=== PATIENT | female | born 1965 | race Caucasian/White ===

== ENCOUNTER 2018-05-27 02:40 | Emergency (ER) | payer SELFPAY ==
[2018-05-27 02:41] VITALS: PULSE 70; RESP 16; TEMP 36.8; O2SAT 97; BMI 28.8
[2018-05-27 02:48] VITALS: BP 124/94; PULSE 62; RESP 16; O2SAT 97
--- NOTE | 2018-05-27 03:23 | EKG12_ITS ---
Test Reason : CP Blood Pressure : / mmHG Vent. Rate : 062 BPM Atrial Rate : 062 BPM P-R Int : 134 ms QRS Dur : 108 ms QT Int : 406 ms P-R-T Axes : 063 056 046 degrees QTc Int : 412 ms Normal sinus rhythm Incomplete right bundle branch block Borderline ECG Confirmed by ROBERT SIMS, SHANON ([id number]), development editor SHARIFA JOHNSON ([id number] on 05/29/2018 2:36:52 PM Referred By: NEIL Confirmed By:SHANON JONES MD
--- NOTE | 2018-05-27 03:24 | ED.VIS.GEN ---
History of Present Illness Chief Complaint: Chest Pain Informant: Patient Onset: Days - 2-3 Context: Sudden Onset Timing: Intermittent, Lasts - 5-10 min Quality: sharp nonpleuritic Location: left side of lower chest, tonight right side Current Severity: gone Maximum Severity: Moderate Worsened by: nothing Relieved by: nothing Associated Symptoms: Throat/right jaw discomfort, nausea en route to hospital, lightheaded Narrative: Tonight patient was awoke by discomfort on the right side although it had been on the left the last couple of days off and on. No dyspnea or palpitations but she did feel little faint. Was clammy but not diaphoretic at one point. No history of heart disease in her or first-degree relatives, she is a non-smoker and is healthy. No history of having a stress test. No recent illnesses or travel. No leg pain or swelling. No pleuritic discomfort. No near syncope. Past Medical History - Allergies and Home Meds Allergies/Adverse Reactions: Allergies amoxicillin Adverse Reaction (Verified 05/27/18 02:45) Rash Primary Care Physician: Yang Laguerre [Primary Care Provider] - 3-5 Days Past Medical History: None Lives: Spouse/ Significant Other Smoking Status: Never smoker Review of Systems General: Denies: Chills, Fever, Sweats Eyes: Denies: Visual changes - bilaterally, Diplopia ENT: Denies: Bilateral ear pain, Rhinorrhea, Sore throat Cardiovascular: Reports: Chest pain. Denies: Palpitations, Heart racing Respiratory: Denies: Dyspnea, Cough, Dyspnea on exertion, Orthopnea Gastrointestinal: Reports: Nausea - Resolved. Denies: Abdominal pain, Vomiting, Diarrhea, Melena, Hematochezia Genitourinary: Denies: Dysuria, Hematuria, Frequency Musculoskeletal: Denies: Back pain, Swelling, Extremity Pain Skin: Denies: Rash, Wounds Neurological: Denies: Headache, Weakness, Numbness Psych: Denies: Depression, Anxiety Endocrine: Denies: Polyuria, Polydipsia Hematologic: Denies: Easy bruising, Easy bleeding Allergy: Denies: Swelling of the mouth, Swelling of the tongue Physical Exam Vital Signs/Narrative: Vital Signs Temp Pulse Resp BP Pulse Ox 05/27/18 02:48 62 16 124/94 H 97 05/27/18 02:41 98.2 F 70 16 97 Inital Vital Signs reviewed: Yes General: Well nourished, Well developed, - - Well-appearing, conversational, NAD Head: Normocephalic, Atraumatic Eyes: Perrl, EOMI ENT: Moist mucous membranes, No rhinorrhea Neck: Supple, Nontender, No lymphadenopathy, No JVD Cardiovascular: Regular rate, Regular rhythm, No murmurs, Normal S1, Normal S2, Murmur - Soft systolic ejection murmur. Negative for: Tachycardia Respiratory: No distress, CTA bilaterally, Chest nontender Abdomen: Soft, Nontender, Nondistended, Normal bowel sounds Back: Nontender, Normal Inspection Extremities: Nontender - No calf tenderness. No palpable cords., No edema Skin: Normal color, No rash Neurological: Alert, Oriented x3, Cranial nerves II-XII grossly intact, Normal Strength, Normal Sensation Psychological: Normal affect Diagnostic/Tx/Re-eval Impressions Chest X-Ray 05/27/18 03:40 IMPRESSION: No radiographic evidence of acute cardiopulmonary disease. Electronically Signed: Jaclyn Pelletier MD at 4:12 EST , Service support , 05/27/18 03:40 Chest PA and Lateral [RAD] Stat Laboratory Results 05/27/18 05/27/18 03:40 03:40 WBC 7.5 RBC 4.36 Hgb 13.8 Hct 40.4 MCV 92.7 MCH 31.7 MCHC 34.2 RDW 12.3 RDW Differential 42.2 Plt Count 216 MPV 8.8 Immature Gran % (Auto) 0.100 Neut % (Auto) 68.5 Lymph % (Auto) 20.8 [place] % (Auto) 7.1 Eos % (Auto) 2.8 Baso % (Auto) 0.7 Absolute Neuts (auto) 5.1 Absolute Lymphs (auto) 1.55 Total Counted Not Reportable Sodium 142 Potassium 4.0 Chloride 105 Carbon Dioxide 29.0 Anion Gap 8 BUN 17 Creatinine 0.92 Estim Creat Clear Calc 61.77 Est GFR (MDRD) Af Amer 82 Est GFR (MDRD) Non-Af 68 BUN/Creatinine Ratio 18.5 Glucose 91 Calcium 10.4 H Troponin I < 0.015 - Rhythm Strip Rhythm Strip: Sinus Rhythm Rate: 60 Ectopy: None - EKG Initial EKG Interpretation: Sinus Rhythm, No Acute Injury Pattern, - - RSR' with narrow complex and normal axis. No old available. Normal EKG. - Medical Decision Making Patient's workup is essentially negative. On reevaluation she is asymptomatic. Her AUGUSTO risk score is 0 and her heart score is 1, only for her age. We discussed possible stress testing as an inpatient versus follow-up as an outpatient, my suspicion for acute coronary syndrome here is relatively low. She declines an offer for admission and prefers to follow-up with her doctor which I think is very reasonable. We discussed reasons to return to the ER and she is comfortable with this plan. ED Disposition - Plan for ED Patient: Disposition: Home or Assisted Living Chief Complaint: Chest Pain Diagnosis: Intermittent chest pain Instructions: ED Chest Pain Atypical Unkn Cause Referrals: Yang Laguerre [Primary Care Provider] - 3-5 Days
[2018-05-27 03:40] VITALS: O2SAT 96
--- NOTE | 2018-05-27 03:40 | RAD_ITS ---
STUDY: X-RAY CHEST REASON FOR EXAM: Female, 52 years old. Chest pain. TECHNIQUE: PA and lateral views of the chest. COMPARISON: Prior comparison studies are not available for review at this time. FINDINGS: Cardiac monitoring leads are present. The lungs are clear and hyperexpanded. There is no demonstrated pleural abnormality. Normal size heart. Normal mediastinum and maribel. Normal visualized pulmonary arteries. Normal visualized aortic arch and descending thoracic aorta. Normal visualized thoracic spine. Normal visualized ribs, clavicles, and shoulders. There is no demonstrated abnormality of the visualized soft tissue structures of the upper abdomen. RAD/Chest PA and Lateral IMPRESSION: No radiographic evidence of acute cardiopulmonary disease. Electronically Signed: Jaclyn Pelletier MD at 4:12 EST , Service support ,
[2018-05-27 03:47] LABS: Absolute Lymphocyte Count 1.55 X10^3/ul (0.83-4.51); Absolute Neutrophil Count 5.1 X10^3/uL (2.0-7.7); Basophil# 0.05 X10^3/uL; Basophil% 0.7 % (0-1); Eosinophil# 0.21 X10^3/uL; Eosinophils% 2.8 % (0-5); Hematocrit 40.4 % (37-47); Hemoglobin 13.8 g/dl (12.0-15.0); Lymphocyte # 1.55 X10^3/ul (4.0); Lymphocyte % 20.8 % (19-41); Mean Corp Hgb Conc 34.2 g/gl (32-36); Mean Corpuscular Hgb 31.7 pg (27.0-32.0); Mean Corpuscular Volume 92.7 fL (81-99); Mean Platelet Vol. 8.8 fl (6.2-12.0); Monocyte# 0.53 X10^3/uL; Monocyte% 7.1 % (0-10); Neutrophil % 68.5 % (47-70); Platelet Count 216 K/mm3 (150-450); RBC Distribution Width CV 12.3 % (11.6-14.6); RBC Distribution Width SD 42.2 fl (35.1-43.9); Red Blood Count 4.36 M/mm3 (4.2-5.4); White Blood Count 7.5 K/mm3 (4.4-11.0)
[2018-05-27 03:50] LABS: POSITIVE COUNT NO; POSITIVE DIFFERENTIAL NO; POSITIVE MORPHOLOGY NO
[2018-05-27 04:02] LABS: Anion Gap 8 (5-15); BUN 17 mg/dL (7-18); BUN/Creat Ratio 18.5 RATIO (10-20); Calcium,Total 10.4 mg/dL (8.5-10.1); Chloride 105 mmol/L (98-107); Creatinine, Serum 0.92 mg/dL (0.55-1.02); EST Glomerular Filtration Rate 68 mL/min (>60); Est Glom Filt Rate - Afr Amer 82 mL/min (>60); Estimated Creatinine Clearance 61.77 ml/min; Glucose 91 mg/dL (74-106); Sodium Level 142 mmol/L (136-145)
[2018-05-27 04:36] VITALS: BP 126/76; PULSE 71; RESP 16; O2SAT 98
[2018-05-27 05:29] VITALS: BP 136/82; PULSE 55; RESP 16; O2SAT 97
== END 2018-05-27 05:30 | disposition home or self-care (01) ==
PROVIDERS: Emergency Provider Emergency Medicine; Family Provider Family Medicine; PCP Family Medicine
DX: R07.89 Other chest pain (principal)
CPT/HCPCS: 71046; 80048; 84484; 85025; 93005; 99284; A4216